=== PATIENT | male | born 1945 | race Caucasian/White ===

== ENCOUNTER → 2018-09-22 | Outpatient (CLI) | payer MEDICARE, OTHER ==
[2018-09-22 11:59] LABS: ALANINE AMINOTRANSFERASE(ML) 26 U/L (12-78); ALKALINE PHOSPHATASE 59 U/L (50-136); ASPARTATE AMINO TRANSFERASE 16 U/L (0-35); CALCIUM 9.6 mg/dL (8.4-10.5); CARBON DIOXIDE 27.6 mmol/L (20.0-32); CHOLESTEROL 180 mg/dL (120-240); GLUCOSE 231 mg/dL (70-110); HDL CHOLESTEROL 32 mg/dL (32-96)
== END | disposition home or self-care (01) ==
LOC: LAB 11:09
PROVIDERS: ATTEND Internal Medicine Cardiovascular Disease
DX: I10 Essential (primary) hypertension (principal); E78.2 Mixed hyperlipidemia; I25.10 Atherosclerotic heart disease of native coronary artery without angina pectoris; Z79.899 Other long term (current) drug therapy
CPT/HCPCS: 36415; 80048; 80061; 80076

== ENCOUNTER 2022-11-29 17:39 | Emergency (ER) | payer MEDICARE ==
[~2022-11-29] VITALS: Ht 182.9 cm; Wt 88.5 kg
--- NOTE | 2022-11-29 17:40 | NUR ---
ARRIVAL PT AMBULATES TO ED 3 WITH C/O DIZZY SPELLS THAT LAST APPROX. 2 SECONDS AT A TIME IN SPORADIC INCRIMENTS. PT STATES THAT THIS HAS BEEN GOING ON FOR " A WHILE". ALTHOUGH PT STATES THAT HE TOOK HIS BP AT HOME AND IT WAS 167/54, PT WAS WORRIED IT WAS TOO HIGH. PT ALSO STATES THAT HE IS SCHEDULED FOR A LUNG BX TOMORROW AND NEEDED TO BE CHECKED OUT TO MAKE SURE HE WOULD BE FINE FOR THE PROCEDURE. ON ASSESSMENT PTS HR WAS 60, 2 SECONDS LATER 49BPM, THEN SPIKE BACK UP TO 72BPM. VITALS OBTAINED. NOTIFIED OF PTS ARRIVAL.
[2022-11-29 18:10] VITALS: BP 142/74
--- NOTE | 2022-11-29 18:25 | PCM.EKG ---
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
--- NOTE | 2022-11-29 18:27 | ER.PDOC ---
General Chief Complaint: Dizziness Stated Complaint: DIZZINESS,HIGH BP Time seen by MD: 17:40 Source: patient Exam Limitations: no limitations History of Present Illness Initial Comments pt is here for HTN b/c his SBP was in the 160's on home monitor. He also has chronic dizzy spells that last a few secondes that he cont to have today though he does not have dizziness at this time. He denies CP, N/V, diaphoresis, or syncope Associated Symptoms: light headness Usually: walks w/o assistance Worsened By: nothing Home Meds Reported Medications Dulaglutide (Trulicity) 1.5 Mg/0.5 Ml Pen.injctr, 1.5 MG SQ Q, UNITS 11/29/22 Atorvastatin 10MG (LIPITOR 10MG) 10 Mg Tablet, 1 TAB PO HS, #90 TAB 1 Refill 11/29/22 Metoprolol Tartrate 25MG (LOPRESSER 25MG) 25 Mg Tablet, 1 TAB PO BID, #180 TAB 1 Refill 11/29/22 Losartan Potassium (LOSARTAN POTASSIUM) 50 Mg Tablet, 1 TAB PO DAILY, #30 TAB 5 Refills 11/29/22 Aspirin (ASPIRIN EC) 81 Mg Tablet.dr, 1 TAB PO DAILY, #30 TAB 3 Refills 11/29/22 Fenofibrate (FENOFIBRATE) 160 Mg Tablet, 1 TAB PO DAILY, #30 TAB 5 Refills 11/29/22 Metformin HCl (Metformin HCl ER) 1,000 Mg [id number], 1 TAB PO QD for diabetes for 30 Days, #30 TAB 0 Refills 11/29/22 Past Medical History Medical History: diabetes, high cholesterol, hypertension Surgical History: appendectomy Social History Alcohol Use: none Drug Use: none Review of Systems Constitutional: denies no symptoms reported, denies see HPI, denies chills, denies diaphoresis, denies fever, denies malaise, denies weakness, denies other Eyes: denies no symptoms reported, denies see HPI, denies blindness, denies blurred vision, denies drainage, denies decreased acuity, denies foreign body sensation, denies inflammation, denies pain, denies photophobia, denies previous injury, denies shadows, denies tunnel vision, denies vision change, denies contact lenses, denies glasses, denies other Ears: denies no symptoms reported, denies see HPI, denies dizziness, denies pain, denies tinnitus, denies bloody discharge, denies clear discharge, denies purulent discharge, denies serosanguinous discharge, denies previous injury, denies other Nose: denies no symptoms reported, denies see HPI, denies clots, denies congestion, denies epistaxis, denies pain, denies bloody discharge, denies clear discharge, denies purulent discharge, denies serosanguinous discharge, denies previous injury, denies other Mouth: denies no symptoms reported, denies see HPI, denies clots, denies loose teeth, denies pain, denies swelling, denies bloody discharge, denies clear discharge, denies purulent discharge, denies serosanguinous discharge, denies previous injury, denies other Throat: denies no symptoms reported, denies see HPI, denies pain, denies swelling, denies discharge, denies neck stiffness, denies aphonia, denies hoarse, denies muffled, denies painful swallowing, denies difficulty with fluids, denies previous injury, denies other Respiratory: denies no symptoms reported, denies see HPI, denies cough, denies orthopnea, denies shortness of breath, denies stridor, denies wheezing, denies other Cardiovascular: see HPI Gastrointestinal: denies no symptoms reported, denies see HPI, denies abdominal pain, denies constipation, denies diarrhea, denies nausea, denies vomiting, denies other Genitourinary: denies no symptoms reported, denies see HPI, denies discharge, denies dysuria, denies frequency, denies hematuria, denies pain, denies other Musculoskeletal: denies no symptoms reported, denies see HPI, denies back pain, denies gout, denies joint pain, denies joint swelling, denies muscle pain, denies muscle stiffness, denies neck pain, denies other Skin: denies no symptoms reported, denies see HPI, denies change in color, denies change in hair/nails, denies dryness, denies lesions, denies lumps, denies rash, denies other All Other Systems: Reviewed and Negative Physical Exam General Appearance: alert, no distress EENT: nml eye inspection, no nystagmus, nml ENT inspection, pharynx nml Neck: supple Respiratory: no resp distress, breath sounds nml CVS: reg rate & rhythm, heart sounds.nml Abdomen: non-tender, no organomegaly, no distention Skin: color nml, no rash, warm/dry Extremities: non-tender, nml ROM, no pedal edema Neuro/Psych: nml orientation, nml speech/cognition, nml mood/affect Cranial Nerves: nml as tested, no evidence of acute CVA Cerebellar: nml as tested Sensorimotor: nml motor, nml sensation Results/Orders Results/Orders Orders - SALLY SOLORIO MD EKG (11/29/22 18:23) Xr Chest 1v (11/29/22 18:23) Cbc With Auto Diff (11/29/22 18:23) Comprehensive Metabolic Panel (11/29/22 18:23) Creatine Kinase (11/29/22 18:23) Creatine Kinase Mb (11/29/22 18:23) Probnp B-Type Sales Marketing Manager (11/29/22 18:23) D-Dimer (11/29/22 18:23) Aspirin (Aspirin) (11/29/22 18:30) Saline Lock (11/29/22 18:23) Troponin I High Sensitivity (11/29/22 18:23) Dopamine Hcl In Dextrose 5 % (Dopamine 4 (11/29/22 18:30) 0.9 % Sodium Chloride (Ns 1000ml) (11/29/22 18:30) 0.9 % Sodium Chloride (Ns 1000ml) (11/29/22 18:36) Vital Signs Date Time Temp Pulse Resp B/P (MAP) Pulse Ox O2 Delivery O2 Flow Rate FiO2 11/29/22 19:25 97.7 68 16 163/79 (107) 96 Room Air* 0 21 11/29/22 18:10 97.7 60 18 95 11/29/22 18:10 97.7 60 18 11/29/22 18:10 97.7 60 18 142/74 (96) 95 Room Air* 0 21 Administered Medications Medications (Trade) Dose Ordered Sig/[place] Route PRN Reason Start Time Stop Time Status Last Admin Dose Admin Sodium Chloride 1,000 ml @ 1,200 mls/hr Q50M STAT IV 11/29/22 18:36 11/29/22 19:25 DC 11/29/22 18:37 1,200 MLS/HR Laboratory Tests Test 11/29/22 18:27 White Blood Count 6.3 10^3/uL (4.5-11.0) Red Blood Count 5.02 10^6/uL (4.50-5.90) Hemoglobin 15.6 g/dL (13.9-16.3) Hematocrit 46.7 % (37.0-53.0) Mean Corpuscular Volume 93.0 fL (78-100) Mean Corpuscular Hemoglobin 31.1 pg (26-34) Mean Corpuscular Hemoglobin Concent 33.4 g/dL (33-36.5) Red Cell Distribution Width 13.0 % (11.5-14.5) Platelet Count 163 10^3/uL (150-400) Mean Platelet Volume 11.5 fL (7.8-11.0) H Neutrophils (%) (Auto) 62.4 % (41.0-85.0) Lymphocytes (%) (Auto) 26.9 % (24.0-44.0) Monocytes (%) (Auto) 7.3 % (5.0-12.0) Neutrophils # (Auto) 3.9 10^3/uL (1.8-7.7) Lymphocytes # (Auto) 1.69 10^3/uL1 (1.0-4.8) Monocytes # (Auto) 0.5 10^3/uL (0.3-0.8) Absolute Immature Granulocyte (auto 0.01 10^3 u/L (0-2) Absolute Eosinophils (auto) 0.2 10^3/uL (0.0-0.2) Immature Granulocytes % 0.20 % (0.00-0.50) Eosinophils % 3.0 % (0.0-5.0) Basophils % 0.2 % (0.0-0.2) Basophils # 0.0 10^3/uL (0.0-0.1) D-Dimer 0.40 mg/L (0.19-0.49) Sodium Level 136 mmol/L (132-145) Potassium Level 4.4 mmol/L (3.6-5.2) Chloride Level 100.0 mmol/L (96-109) Carbon Dioxide Level 28.0 mmol/L (20.0-32) Anion Gap 12.4 Blood Urea Nitrogen 20 mg/dL (7-18) H Creatinine 1.01 mg/dL (0.59-1.40) Estimated GFR () 86.7 (>/=60) Est GFR (CKD-EPI)(Non-Afr [place]) 71.6 (>/=60) BUN/Creatinine Ratio 19.0 (10.0-20.0) Glucose Level 301 mg/dL (70-110) H Calcium Level 9.2 mg/dL (8.4-10.5) Total Bilirubin 0.4 mg/dL (0.2-1.0) Aspartate Amino Transferase (AST) 11 U/L (0-35) Alanine Aminotransferase (ALT) 17 U/L (12-78) Alkaline Phosphatase 75 U/L (50-136) Total Creatine Kinase 68 U/L (39-308) Creatine Kinase MB 1.9 ng/mL (0.5-3.6) Troponin I High Sensitivity 6 ng/L (0-75) Pro-B-Type Natriuretic Peptide 192 pg/mL (0-450) Total Protein 7.0 g/dL (6.4-8.2) Albumin 3.6 g/dL (3.4-5.0) Globulin 3.4 Albumin/Globulin Ratio 1.058 Progress Progress ddx: htn, arrythmia, electrolyte imbal, thyroid, mg, MN D/W Dr. James immediately after the 1st EKG which he reviewed. He suspects it's from B blockade. He wants 1L NS bolus and admit to hospitalist. He will see pt later, 10 min Pt and state the pt has an appointment at [facility] for a lung bx tomorrow at 6am. Thus, they want to be transferred there. EKG/XRAY/CT/US EKG: NSR (PAC w pause), no ST T wave changes ER DEPART Departure Time of Disposition: 18:53 Disposition: [facility] Impression: Primary Impression: PAC (premature atrial contraction) Additional Impression: Dizzy spells Condition: Stable If Transfer, List PT Destinati: [facility], ground, ER to ER, Dr. Andrade Referrals: PCP,UNKNOWN (PCP) PRIMARY CARE PROVIDER Duration or Time Spent with Pa: 40 Problem Qualifiers SALLY SOLORIO MD Nov 29, 2022 18:27
[2022-11-29] MEDS ORDERED: NS 1000ML 1,000 ML ONE (18:30)
[2022-11-29] MEDS ORDERED: ASPIRIN PO PRN (18:30)
[2022-11-29] MEDS ORDERED: DOPamine 400 MG/D5W 250 ML 250 ML IV SCH (18:30)
[2022-11-29 18:35] LABS: BASOPHIL % 0.2 % (0.0-0.2); EOSINOPHIL # 0.2 10^3/uL (0.0-0.2); LYMPHOCYTES # 1.69 10^3/uL1 (1.0-4.8); LYMPHOCYTES % 26.9 % (24.0-44.0); MEAN CORP HGB 31.1 pg (26-34); MONOCYTES # 0.5 10^3/uL (0.3-0.8); MONOCYTES % 7.3 % (5.0-12.0); NEUTROPHIL # 3.9 10^3/uL (1.8-7.7); NEUTROPHILS % 62.4 % (41.0-85.0); PLATELET COUNT 163 10^3/uL (150-400)
[2022-11-29] MEDS ORDERED: NS 1000ML 1,000 ML IV STA (18:36)
[2022-11-29] MEDS ORDERED: METO25TA4 PO (18:48)
[2022-11-29] MEDS ORDERED: LOSA50TA14 PO (18:48)
[2022-11-29] MEDS ORDERED: ASPI-929 PO (18:48)
[2022-11-29] MEDS ORDERED: DULA1.5P SQ (18:48)
[2022-11-29] MEDS ORDERED: [UNRECOGNIZED DRUG - CODE] PO (18:48)
[2022-11-29] MEDS ORDERED: ATOR10TA PO (18:48)
[2022-11-29] MEDS ORDERED: FENO160T PO (18:48)
--- NOTE | 2022-11-29 18:48 | NUR ---
[facility] EDP DR SOLORIO ON PHONE WITH [facility]SF[facility] ABOUT POSSIBLE TRANSFER
--- NOTE | 2022-11-29 18:52 | NUR ---
[facility] ACCEPTANCE DR LUTHER ACCEPTED PATIENT. GREGORY BOSS RN IS AOD. FACESHEET AND EKG FAXED AT THIS TIME.
--- NOTE | 2022-11-29 19:02 | NUR ---
[facility] CALLED AND REQUESTED AMBULANCE FOR TRANSFER
--- NOTE | 2022-11-29 19:15 | DIREP ---
PROCEDURE:CHEST 1 VIEW COMPARISON:[facility], [place], XRAY CHEST 2 VWS, 07/03/2021, 02:45 PM. [facility], [place], XRAY CHEST 2 VWS, 06/10/2020, 03:06 PM. INDICATIONS:bradycardia, htn FINDINGS: LUNGS/PLEURA:No focal consolidation, pleural effusion, or pneumothorax. No significant change in the dense nodule projecting over the mid to lower left lung. VASCULATURE:Normal. Unremarkable pulmonary vasculature. CARDIAC:Normal. No cardiac silhouette abnormality or cardiomegaly. MEDIASTINUM:Normal. No visible mass or adenopathy. BONES:Normal. No fracture or visible bony lesion. OTHER:Negative. CONCLUSION: No acute cardiopulmonary abnormality or significant interval change. Stable dense left lung nodule Dictated by: Alli Knox M.D. On 11/29/2022 at 07:12 PM
[2022-11-29 19:25] VITALS: BP 163/79
== END 2022-11-29 19:25 | disposition critical access hospital (66) ==
LOC: ER 17:39
DX: I49.1 Atrial premature depolarization (principal); R42 Dizziness and giddiness; E11.9 Type 2 diabetes mellitus without complications; E78.00 Pure hypercholesterolemia, unspecified; I10 Essential (primary) hypertension; Z90.49 Acquired absence of other specified parts of digestive tract
CPT/HCPCS: 99285; 96360; 71045; 80053; 85025; 36415; 85379; 84484; 82553; 83880; 82550; 93005; J7030